=== PATIENT | female | born 1985 | race Caucasian/White ===

== ENCOUNTER → 2024-07-07 | Outpatient (CLI) | payer OTHER ==
[~2024-07-07] MED LIST: PREDNISONE20 MG PO; VALTREX1 GM PO; ZOO CHEWS1 CTB PO
== END ==
LOC: COL.RAD 12:43
DX: R19.7 Diarrhea, unspecified (principal); R15.2 Fecal urgency; R14.0 Abdominal distension (gaseous); Z83.79 Family history of other diseases of the digestive system

== ENCOUNTER 2024-07-16 19:27 | Emergency (ER) | payer OTHER ==
[~2024-07-16] VITALS: Ht 167.6 cm; Wt 83.2 kg
[2024-07-16] MEDS ORDERED: Lidocaine 2% (20 MG/ML) 20 ML UROJET TOP ONE (20:15)
[2024-07-16 20:34] VITALS: BP 140/91; PULSE 73; TEMP 98
== END 2024-07-16 20:34 | disposition home or self-care (01) ==
LOC: COL.ER 19:27
DX: K64.5 Perianal venous thrombosis (principal); Z87.891 Personal history of nicotine dependence